=== PATIENT | male | born 1975 | race Caucasian/White ===

== ENCOUNTER 2019-01-04 20:14 | Emergency (ER) | payer OTHER ==
[2019-01-04 20:51] LABS: Absolute Lymphocytes (CBC) 1.5 K/uL (0.7-4.9); Basophils % 0.4 % (0-1.3); Eosinophils % 1.4 % (0-4.4); Hematocrit 46.3 % (39.6-49.0); Lymphocytes % 17.4 % (15.3-44.8); MPV 10.2 fL (7.6-11.3); Monocytes % 7.3 % (3.3-12.3); RBC Red Blood Cell Count 5.15 M/uL (4.33-5.43)
[2019-01-04] MEDS ORDERED: NA CHLORIDE 0.9% 1,000 ML ONE (21:03)
[2019-01-04 21:14] LABS: ALT/SGPT 44 U/L (12-78); AST/SGOT 28 U/L (15-37); Albumin 3.9 g/dL (3.4-5.0); Alkaline Phosphatase 77 U/L (45-117); BUN Blood Urea Nitrogen 15 mg/dL (7-18); Bicarbonate 26 mmol/L (21-32); Bilirubin Direct 0.1 mg/dL (0-0.2); Bilirubin Total 0.6 mg/dL (0.2-1.0); CKMB Creatine Kinase MB < 1.0 ng/mL (0.3-3.6); Creatine Phosphokinase 125 U/L (39-308); Glucose Level 103 mg/dL (74-106); Magnesium 2.3 mg/dL (1.8-2.4); NT PRO-BNP 16 pg/mL (<125); Potassium 3.6 mmol/L (3.5-5.1); Protein, Total 7.8 g/dL (6.4-8.2); Sodium Level 139 mmol/L (136-145); Troponin (Emerg Dept Use Only) 0.02 ng/mL (0.0-0.045)
[2019-01-04] MEDS ORDERED: KETOROLAC 30 MG/ML INJ ONE (21:47)
--- NOTE | 2019-01-04 22:53 | ER ---
Nurse's Notes [facility] Name: Mariana Matamoros Age: 43 yrs Sex: Male : 1975 Arrival Date: 01/04/2019 Time: 20:15 Bed 20 Private MD: Diagnosis: Other chest pain-chest wall Presentation: 01/04 20:18 Presenting complaint: Patient states: Dog jumped on chest 3 days ago and since then, ss chest has become increasingly sore. Pt reported to family member that he experienced briefly some tingling to fingers on left hand. Transition of care: patient was not received from another setting of care. Onset of symptoms was January 04, 2019. Risk Assessment: Do you want to hurt yourself or someone else? Patient reports no desire to harm self or others. Initial Sepsis Screen: Does the patient meet any 2 criteria? No. Patient's initial sepsis screen is negative. Does the patient have a suspected source of infection? No. Patient's initial sepsis screen is negative. Care prior to arrival: None. 20:18 Method Of Arrival: Ambulatory ss 20:18 Acuity: BESSIE 3 ss Historical: - Allergies: 20:21 No Known Allergies; ss - Home Meds: 20:21 None [Active]; ss - PMHx: 20:21 None; ss - PSHx: 20:21 L knee repair; ss - Immunization history:: Adult Immunizations up to date. - Social history:: Smoking status: Patient uses tobacco products, chewing tobacco. - Ebola Screening: : Patient denies exposure to infectious person Patient denies travel to an Ebola-affected area in the 21 days before illness onset. - Family history:: not pertinent. Screenin:00 Abuse screen: Denies threats or abuse. Denies injuries from another. Nutritional lp1 screening: No deficits noted. Tuberculosis screening: No symptoms or risk factors identified. Fall Risk None identified. Assessment: 21:00 General: Appears in no apparent distress. comfortable, Behavior is calm, cooperative, lp1 appropriate for age. Pain: Complains of pain in chest Pain does not radiate. Pain began 2-3 days ago. Aggravated by Pain on respiration. Neuro: No deficits noted. Cardiovascular: Patient's skin is warm and dry. Respiratory: Reports pain with respiration Respiratory effort is even, unlabored, Respiratory pattern is regular, Breath sounds are clear bilaterally. GI: No deficits noted. : No signs and/or symptoms were reported regarding the genitourinary system. EENT: No signs and/or symptoms were reported regarding the EENT system. Derm: Skin is pink, warm \T\ dry. Musculoskeletal: No deficits noted. 22:00 Reassessment: Patient appears in no apparent distress at this time. Patient is alert, lp1 oriented x 3, equal unlabored respirations, skin warm/dry/pink. Patient aware of waiting for CT results. 23:12 Reassessment: Patient appears in no apparent distress at this time. Patient is alert, lp1 oriented x 3, equal unlabored respirations, skin warm/dry/pink. Patient states feeling better. Patient states symptoms have improved. Vital Signs: 20:21 BP 136 / 93; Pulse 98; Resp 17; Temp 98.1(TE); Pulse Ox 97% on R/A; Weight 149.69 kg; Height 6 ft. 0 in. (182.88 cm); Pain 1/10; 21:00 BP 121 / 79; Pulse 95; Resp 18; Pulse Ox 96% on R/A; lp1 22:00 BP 131 / 86; Pulse 87; Resp 18; Pulse Ox 97% on R/A; lp1 23:13 BP 120 / 81; Pulse 87; Resp 18; Pulse Ox 97% ; Pain 0/10; lp1 20:21 Body Mass Index 44.76 (149.69 kg, 182.88 cm) ED Course: 20:15 Patient arrived in ED. 20:18 Hernando Small MD is Attending Physician. [facility] 20:21 Triage completed. 20:21 Arm band placed on right wrist. 20:24 Radiology exam delayed due to lab results not completed at this time. (BUN/Creatinine). vm2 20:40 Initial lab(s) drawn, by me, sent to lab. Inserted saline lock: 20 gauge in right fc antecubital area, using aseptic technique. 20:47 Yoselyn Milner, DAVID is Primary Nurse. lp1 21:00 Patient has correct armband on for positive identification. Placed in gown. Cardiac lp1 monitor on. Pulse ox on. NIBP on. 21:00 Patient maintains SpO2 saturation greater than 95% on room air. lp1 21:46 CT completed. Patient tolerated procedure well. Patient moved to CT. Patient moved back ct from CT. 21:51 CT Chest For PE Angio In Process Unspecified. EDMS 22:50 Parish Herman MD is Referral Physician. [facility] 23:11 No provider procedures requiring assistance completed. IV discontinued, No lp1 redness/swelling at site. Pressure dressing applied. Administered Medications: 21:00 Drug: NS 0.9% 1000 ml Route: IV; Rate: 1 bolus; Site: right antecubital; lp1 22:15 Follow up: IV Status: Completed infusion; IV Intake: 1000ml lp1 22:03 Drug: TORadol 30 mg Route: IVP; Site: right antecubital; lp1 22:39 Follow up: Response: Pain is decreased lp1 Intake: 22:15 IV: 1000ml; Total: 1000ml. lp1 Outcome: 22:50 Discharge ordered by . [facility] 23:12 Discharged to home ambulatory, with significant other. lp1 23:12 Condition: good 23:12 Discharge instructions given to patient, Instructed on discharge instructions, follow up and referral plans. medication usage, Demonstrated understanding of instructions, follow-up care, medications, Prescriptions given X 2. 23:14 Patient left the ED. lp1 Signatures: Dispatcher [employer] EDLA Hernando Small MD MD cha Chretien, Felicia RN Paola Huerta RN RN ss Pena, Laura, RN RN lp1 Cj Dang Victoria [facility]
--- NOTE | 2019-01-04 22:53 | EDPHYS ---
Physician Documentation [facility] Name: Mariana Matamoros Age: 43 yrs Sex: Male : 1975 Arrival Date: 01/04/2019 Time: 20:15 Bed 20 Private MD: ED Physician Hernando Small HPI: 01/04 20:22 This 43 yrs old Male presents to ER via Ambulatory with complaints of Chest viki Wall Pain. 20:22 The patient or guardian reports chest pain that is located primarily in the anterior viki chest wall, left. Onset: 3 day(s) ago. The pain does not radiate. Associated signs and symptoms: The patient has no apparent associated signs or symptoms. The chest pain is described as sharp. Duration: The patient or guardian reports multiple episodes, that wax and wane. Modifying factors: The symptoms are alleviated by remaining still, the symptoms are aggravated by breathing, deep breath, exertion, movement, palpation of area. Severity of pain: At its worst the pain was moderate in the emergency department the pain is unchanged. The patient has not experienced similar symptoms in the past. Historical: - Allergies: 20:21 No Known Allergies; ss - Home Meds: 20:21 None [Active]; ss - PMHx: 20:21 None; ss - PSHx: 20:21 L knee repair; ss - Immunization history:: Adult Immunizations up to date. - Social history:: Smoking status: Patient uses tobacco products, chewing tobacco. - Ebola Screening: : Patient denies exposure to infectious person Patient denies travel to an Ebola-affected area in the 21 days before illness onset. - Family history:: not pertinent. ROS: 20:22 Constitutional: Negative for fever, chills, and weight loss, Eyes: Negative for injury, viki pain, redness, and discharge, ENT: Negative for injury, pain, and discharge, Neck: Negative for injury, pain, and swelling, Respiratory: Negative for shortness of breath, cough, wheezing, and pleuritic chest pain, Abdomen/GI: Negative for abdominal pain, nausea, vomiting, diarrhea, and constipation, Back: Negative for injury and pain, : Negative for injury, bleeding, discharge, and swelling, MS/Extremity: Negative for injury and deformity, Skin: Negative for injury, rash, and discoloration, Neuro: Negative for headache, weakness, numbness, tingling, and seizure, Psych: Negative for depression, anxiety, suicide ideation, homicidal ideation, and hallucinations, Allergy/Immunology: Negative for hives, rash, and allergies, Endocrine: Negative for neck swelling, polydipsia, polyuria, polyphagia, and marked weight changes, Hematologic/Lymphatic: Negative for swollen nodes, abnormal bleeding, and unusual bruising. 20:22 Cardiovascular: Positive for chest pain, of the chest. Exam: 20:22 Constitutional: This is a well developed, well nourished patient who is awake, alert, viki and in no acute distress. Head/Face: Normocephalic, atraumatic. Eyes: Pupils equal round and reactive to light, extra-ocular motions intact. Lids and lashes normal. Conjunctiva and sclera are non-icteric and not injected. Cornea within normal limits. Periorbital areas with no swelling, redness, or edema. ENT: Nares patent. No nasal discharge, no septal abnormalities noted. Tympanic membranes are normal and external auditory canals are clear. Oropharynx with no redness, swelling, or masses, exudates, or evidence of obstruction, uvula midline. Mucous membranes moist. Neck: Trachea midline, no thyromegaly or masses palpated, and no cervical lymphadenopathy. Supple, full range of motion without nuchal rigidity, or vertebral point tenderness. No Meningismus. Chest/axilla: Normal chest wall appearance and motion. Nontender with no deformity. No lesions are appreciated. Cardiovascular: Regular rate and rhythm with a normal S1 and S2. No gallops, murmurs, or rubs. Normal PMI, no JVD. No pulse deficits. Respiratory: Lungs have equal breath sounds bilaterally, clear to auscultation and percussion. No rales, rhonchi or wheezes noted. No increased work of breathing, no retractions or nasal flaring. Abdomen/GI: Soft, non-tender, with normal bowel sounds. No distension or tympany. No guarding or rebound. No evidence of tenderness throughout. Back: No spinal tenderness. No costovertebral tenderness. Full range of motion. Male : Normal genitalia with no discharge or lesions. Skin: Warm, dry with normal turgor. Normal color with no rashes, no lesions, and no evidence of cellulitis. MS/ Extremity: Pulses equal, no cyanosis. Neurovascular intact. Full, normal range of motion. Neuro: Awake and alert, GCS 15, oriented to person, place, time, and situation. Cranial nerves II-XII grossly intact. Motor strength 5/5 in all extremities. Sensory grossly intact. Cerebellar exam normal. Normal gait. Psych: Awake, alert, with orientation to person, place and time. Behavior, mood, and affect are within normal limits. 20:22 Musculoskeletal/extremity: Extremities: all appear grossly normal, with no appreciated pain with palpation, ROM: no acute changes, intact in all extremities, full active range of motion, full passive range of motion, Circulation is intact in all extremities. Sensation intact. Compartment Syndrome exam of affected extremity: is normal. no pain, no numbness, no tingling, no sensation deficit, no palor, no weak pulses, DVT Exam: No signs of deep vein thrombosis. no pain, no swelling, no tenderness, negative Homans' sign noted on exam, no appreciated bluish discoloration, no erythema, no increased warmth. Vital Signs: 20:21 BP 136 / 93; Pulse 98; Resp 17; Temp 98.1(TE); Pulse Ox 97% on R/A; Weight 149.69 kg; ss Height 6 ft. 0 in. (182.88 cm); Pain 1/10; 21:00 BP 121 / 79; Pulse 95; Resp 18; Pulse Ox 96% on R/A; lp1 22:00 BP 131 / 86; Pulse 87; Resp 18; Pulse Ox 97% on R/A; lp1 23:13 BP 120 / 81; Pulse 87; Resp 18; Pulse Ox 97% ; Pain 0/10; lp1 20:21 Body Mass Index 44.76 (149.69 kg, 182.88 cm) MDM: 20:18 Patient medically screened. [facility] 20:49 Data reviewed: vital signs, nurses notes, lab test result(s), EKG, radiologic studies, [facility] CT scan, plain films. 01/04 20:22 Order name: Basic Metabolic Panel [facility] 01/04 20:22 Order name: CBC with Diff [facility] 01/04 20:22 Order name: LFT's; Complete Time: 21:17 [facility] 01/04 20:22 Order name: Magnesium; Complete Time: 21:17 [facility] 01/04 20:22 Order name: NT PRO-BNP; Complete Time: 21:17 [facility] 01/04 20:22 Order name: Troponin (emerg Dept Use Only); Complete Time: 21:17 [facility] 01/04 20:22 Order name: Ckmb; Complete Time: 21:17 [facility] 01/04 20:22 Order name: CK; Complete Time: 21:17 [facility] 01/04 20:22 Order name: CT Chest For PE Angio [facility] 01/04 20:25 Order name: Basic Metabolic Panel; Complete Time: 21:17 [facility] 01/04 20:25 Order name: CBC with Automated Diff; Complete Time: 21:17 [facility] 01/04 20:46 Order name: Lipase; Complete Time: 21:17 [facility] 01/04 21:15 Order name: Troponin (emerg Dept Use Only): 10pm; Complete Time: 22:52 [facility] 01/04 20:22 Order name: EKG; Complete Time: 20:25 [facility] 01/04 20:22 Order name: Cardiac monitoring; Complete Time: 21:16 [facility] 01/04 20:22 Order name: EKG - Nurse/Tech; Complete Time: 20:28 [facility] 01/04 20:22 Order name: IV Saline Lock; Complete Time: 21:16 [facility] 01/04 20:22 Order name: Labs collected and sent; Complete Time: 21:16 [facility] 01/04 20:22 Order name: O2 Per Protocol; Complete Time: 21:16 [facility] 01/04 20:22 Order name: O2 Sat Monitoring; Complete Time: 21:16 [facility] Administered Medications: 21:00 Drug: NS 0.9% 1000 ml Route: IV; Rate: 1 bolus; Site: right antecubital; lp1 22:15 Follow up: IV Status: Completed infusion; IV Intake: 1000ml lp1 22:03 Drug: TORadol 30 mg Route: IVP; Site: right antecubital; lp1 22:39 Follow up: Response: Pain is decreased lp1 Disposition: 01/04/19 22:50 Discharged to Home. Impression: Other chest pain - chest wall. - Condition is Stable. - Discharge Instructions: Nonspecific Chest Pain, Chest Wall Pain, Nonspecific Chest Pain, [id number]. - Prescriptions for Ibuprofen 600 mg Oral Tablet - take 1 tablet by ORAL route every 8 hours As needed take with food; 21 tablet. Tylenol- Codeine #3 300-30 mg Oral Tablet - take 2 tablet by ORAL route every 6 hours As needed; 30 tablet. - Medication Reconciliation Form, Thank You Letter, Antibiotic Education, Prescription Opioid Use form. - Follow up: Private Physician; When: 2 - 3 days; Reason: Recheck today's complaints, Continuance of care, Re-evaluation by your physician. Follow up: Parish Herman; When: 2 - 3 days; Reason: Recheck today's complaints, Continuance of care, Re-evaluation by your physician. - Problem is new. - Symptoms have improved. Signatures: Dispatcher [employer] EDHernando Ford MD MD cha Smirch, Shelby, RN RN ss Yoselyn Milner RN RN lp1 Corrections: (The following items were deleted from the chart) 23:14 22:50 01/04/2019 22:50 Discharged to Home. Impression: Other chest pain - chest wall. lp1 Condition is Stable. Discharge Instructions: Chest Wall Pain, Nonspecific Chest Pain, Nonspecific Chest Pain, [id number]. Prescriptions for Ibuprofen 600 mg Oral Tablet - take 1 tablet by ORAL route every 8 hours As needed take with food; 21 tablet, Tylenol-Codeine #3 300-30 mg Oral Tablet - take 2 tablet by ORAL route every 6 hours As needed; 30 tablet. and Forms are Medication Reconciliation Form, Thank You Letter, Antibiotic Education, Prescription Opioid Use. Follow up: Private Physician; When: 2 - 3 days; Reason: Recheck today's complaints, Continuance of care, Re-evaluation by your physician. Follow up: Parish Herman; When: 2 - 3 days; Reason: Recheck today's complaints, Continuance of care, Re-evaluation by your physician. Problem is new. Symptoms have improved. viki
--- NOTE | 2019-01-05 07:33 | EKG ---
Test Date: 2019-01-04 Test Time: 20:28:30 Non Clinical Advisor: ALBERTO MEASUREMENT RESULTS: Intervals: Rate: 98 NE: 142 QRSD: 90 QT: 332 QTc: 423 [place]: P: 41 NE: 142 QRS: -4 T: 93 INTERPRETIVE STATEMENTS: Normal sinus rhythm Moderate voltage criteria for LVH, may be normal variant Abnormal QRS-T angle, consider primary T wave abnormality Abnormal ECG No previous ECG available for comparison Electronically Signed On 01-05-19 07:32:16 CDT by Parish Herman
--- NOTE | 2019-01-05 10:47 | RAD REPORT ---
EXAM DESCRIPTION: CT - Chest For Pe Angio - 01/04/2019 9:51 pm CLINICAL HISTORY: 43 years old and is Male; Chest pain;Dyspnea TECHNIQUE: Axial computed tomographic angiography images of the chest with intravenous contrast [facility] pulmonary embolism protocol. Sagittal and coronal reformatted images were created and reviewed. Sagittal and coronal reformatted images were created and reviewed. This CT exam was performed [facility] one or more of the following dose reduction techniques: automated exposure control, adjustment of the mA and/or kV according to patient size, and/or use of iterative reconstruction technique. MIP reconstructed images were created and reviewed. COMPARISON: No relevant prior studies available. FINDINGS: Limitations: None. Pulmonary arteries: Unremarkable. No pulmonary embolism. Aorta: No significant abnormality noted. No thoracic aortic aneurysm. Lungs: Mild scattered basilar atelectasis present. No mass. Pleural space: Unremarkable. No significant effusion. No pneumothorax. Heart: Unremarkable. No cardiomegaly. No significant pericardial effusion. No evidence of RV dysfunction. Bones/joints: No acute fracture. No dislocation. Soft tissues: Unremarkable. Lymph nodes: Unremarkable. No enlarged lymph nodes. Liver: Fatty liver. IMPRESSION: No significant acute findings. Electronically signed by: Rosi Carrasquillo MD 01/04/2019 10:05 PM CDT Due to temporary technical issues with the PACS/Fluency reporting system, reports are being signed by the in house radiologist as a courtesy to ensure prompt reporting. The interpreting radiologist is f ully responsible for the content of the report.
== END 2019-01-04 23:14 | disposition home or self-care (01) ==
LOC: ER 20:14
DX: R07.89 Other chest pain (principal); Z72.0 Tobacco use
CPT/HCPCS: 36415; 71275; 80048; 80076; 82550; 82553; 83690; 83735; 83880; 84484; 85025; 93005; 96361; 96374; 99285; J7030; Q9967

== ENCOUNTER 2019-09-19 21:33 | Emergency (ER) | payer OTHER ==
--- OUTSIDE RECORDS SUMMARY | 2019-09-19 21:34 | XMS REPORT ---
:1975 Author Organization [employer] Care Team Providers Name Role Phone Aaron Laurent Provider Role Unavailable Allergies, Adverse Reactions, Alerts Substance Reaction Event Type N.K.D.A. Info Not Available Non Drug Allergy Problems Problem Type Condition Code Onset Dates Condition Status Assessment Follow up Z09 Active Medications No Known Medications Results No Known Results Summary Purpose [employer] Submission
--- OUTSIDE RECORDS SUMMARY | 2019-09-19 21:34 | XMS REPORT ---
:1975 Author Organization [employer] Care Team Providers Name Role Phone Aaron Laurent Provider Role Unavailable Allergies, Adverse Reactions, Alerts Substance Reaction Event Type N.K.D.A. Info Not Available Non Drug Allergy Problems Problem Type Condition Code Onset Dates Condition Status Assessment Thrombosed hemorrhoids K64.5 Active Medications Medication Code System Code Instructions Start End Date Status Dosage Date Rectal Rocket NDC 0 rectally q12 October 18, October 25, Active 1 suppository hours as needed 2018 2018 Results No Known Results Summary Purpose [employer] Submission
[2019-09-19] MEDS ORDERED: MORPHINE 4 MG/ML SYR ONE (21:48)
[2019-09-19] MEDS ORDERED: KETOROLAC 30 MG/ML INJ ONE (21:48)
[2019-09-19] MEDS ORDERED: ONDANSETRON 4 MG/2 ML VIAL ONE ×2 (21:48→23:49)
[2019-09-19] MEDS ORDERED: NA CHLORIDE 0.9% 1,000 ML ONE ×2 (21:48→22:24)
[2019-09-19 21:59] LABS: Absolute Lymphocytes (CBC) 1.8 K/uL (0.7-4.9); Basophils % 0.4 % (0-1.3); Hematocrit 44.7 % (39.6-49.0); Lymphocytes % 27.5 % (15.3-44.8); MPV 10.2 fL (7.6-11.3); RBC Red Blood Cell Count 5.05 M/uL (4.33-5.43)
[2019-09-19 22:17] LABS: ALT/SGPT 42 U/L (12-78); AST/SGOT 21 U/L (15-37); Albumin 3.8 g/dL (3.4-5.0); Alkaline Phosphatase 85 U/L (45-117); BUN Blood Urea Nitrogen 12 mg/dL (7-18); Bicarbonate 27 mmol/L (21-32); Bilirubin Total 0.5 mg/dL (0.2-1.0); Glucose Level 107 mg/dL (74-106); Lipase 98 U/L (73-393); Potassium 3.4 mmol/L (3.5-5.1); Protein, Total 7.6 g/dL (6.4-8.2); Sodium Level 140 mmol/L (136-145)
[2019-09-19] MEDS ORDERED: TAMSULOSIN 0.4 MG SR CAP ONE (22:24)
[2019-09-19] MEDS ORDERED: CEFTRIAXONE/SWI 1gm 1 GM/10 ML SYR ONE (22:25)
[2019-09-19] MEDS ORDERED: MAGNESIUM SULFATE 1 gm IVPB 1 GM/100 ML BAG IV ONE (22:25)
[2019-09-19] MEDS ORDERED: HYDROMORPHONE HCL 1 MG/ML INJ ONE (23:48)
--- NOTE | 2019-09-20 00:10 | EDPHYS ---
Physician Documentation [facility] Name: Mariana Matamoros Age: 44 yrs Sex: Male : 1975 Arrival Date: 09/19/2019 Time: 21:35 Bed 8 Private MD: ROGER Physician Hernando Small HPI: 09/18 21:38 This 44 yrs old Male presents to ER via Ambulatory with complaints of right cp flank pain, rlq pain and right testicle pain. 21:38 The patient presents with abdominal pain right lower quadrant, abdominal distention in cp the upper abdomen, in the lower abdomen. Onset: The symptoms/episode began/occurred this morning. The patient complains of pain in the right mid back and right low back. The pain radiates to the right mid back and right low back. Onset: The symptoms/episode began/occurred this morning. Modifying factors: The symptoms are alleviated by nothing. the symptoms are aggravated by nothing. The patient presents with flank pain, described as crampy, steady, of the right mid back and right low back, scrotal pain, of the right side. Modifying factors: The symptoms are alleviated by nothing, the symptoms are aggravated by nothing. Associated signs and symptoms: Pertinent positives: nausea. Historical: - Allergies: 21:37 No Known Allergies; jd3 - Home Meds: 21:37 None [Active]; jd3 - PMHx: 21:37 None; jd3 - PSHx: 21:37 L knee repair; jd3 - Immunization history:: Adult Immunizations up to date. - Social history:: Smoking status: Patient reports use of chewing tobacco. - Family history:: not pertinent. ROS: 21:38 Constitutional: Negative for fever, chills, and weight loss. cp 21:40 Constitutional: Negative for body aches, chills. cp 21:40 Cardiovascular: Negative for chest pain. 21:40 Respiratory: Negative for cough. 21:40 Abdomen/GI: Positive for abdominal pain, of the anterior aspect of right lateral abdomen, posterior aspect of right lateral abdomen and right lower quadrant. 21:40 : Positive for testicular pain of the right testicle. Exam: 21:40 Constitutional: This is a well developed, well nourished patient who is awake, alert, cp and in no acute distress. Head/Face: Normocephalic, atraumatic. Eyes: Pupils equal round and reactive to light, extra-ocular motions intact. Lids and lashes normal. Conjunctiva and sclera are non-icteric and not injected. Cornea within normal limits. Periorbital areas with no swelling, redness, or edema. ENT: Nares patent. No nasal discharge, no septal abnormalities noted. Tympanic membranes are normal and external auditory canals are clear. Oropharynx with no redness, swelling, or masses, exudates, or evidence of obstruction, uvula midline. Mucous membranes moist. Neck: Trachea midline, no thyromegaly or masses palpated, and no cervical lymphadenopathy. Supple, full range of motion without nuchal rigidity, or vertebral point tenderness. No Meningismus. Chest/axilla: Normal chest wall appearance and motion. Nontender with no deformity. No lesions are appreciated. Cardiovascular: Regular rate and rhythm with a normal S1 and S2. No gallops, murmurs, or rubs. Normal PMI, no JVD. No pulse deficits. Respiratory: Lungs have equal breath sounds bilaterally, clear to auscultation and percussion. No rales, rhonchi or wheezes noted. No increased work of breathing, no retractions or nasal flaring. 21:40 Abdomen/GI: Inspection: distension, Bowel sounds: normal, Palpation: mild abdominal tenderness, moderate abdominal tenderness, in the right lower quadrant. 21:40 Back: pain, that is mild, ROM is normal, normal spinal alignment noted, CVA tenderness, that is mild, is noted on the right, muscle spasm, is not present. 21:40 Skin: Appearance: Color: normal in color, Temperature: normal temperature, Moisture: normal moisture, petechiae, not noted, ecchymosis, not noted, flushing, not noted, diaphoresis is not appreciated, no rash present. Vital Signs: 21:37 BP 131 / 87; Pulse 92; Resp 17 S; Temp 97.7(O); Pulse Ox 95% on R/A; Weight 147.42 kg jd3 (R); Height 6 ft. 0 in. (182.88 cm) (R); Pain 6/10; 22:43 BP 118 / 70; Pulse 78; Resp 17 S; Pulse Ox 95% on R/A; Pain 4/10; jd3 23:33 BP 113 / 71; Pulse 81; Resp 17 S; Pulse Ox 96% on R/A; Pain 4/10; jd3 21:37 Body Mass Index 44.08 (147.42 kg, 182.88 cm) jd3 MDM: 21:43 Data reviewed: vital signs, nurses notes, lab test result(s), radiologic studies, CT cp scan. 21:43 Patient medically screened. 09/19 00:05 ED course: [email or web address] website reports patient has narcotic score of 030 and overall cp overdose score of 110. 09/18 21:37 Order name: CBC with Diff; Complete Time: 22:22 cp 09/18 21:37 Order name: Lipase; Complete Time: 22:22 cp 09/18 21:37 Order name: Comprehensive Metabolic Panel; Complete Time: 22:22 cp 09/18 21:37 Order name: Urine Culture 09/18 21:48 Order name: Urine Microscopic Only 09/18 22:48 Order name: Urine Dipstick--Ancillary (enter results) mw2 09/18 21:37 Order name: CT Stone Protocol 09/18 22:47 Order name: CT Aorta for Dissection cp Administered Medications: 09/18 21:53 Drug: NS 0.9% 1000 ml Route: IV; Rate: 1 bolus; Site: right antecubital; jd3 22:35 Follow up: Response: No adverse reaction; IV Status: Completed infusion; IV Intake: jd3 1000ml 21:53 Drug: Zofran (Ondansetron) 4 mg Route: IVP; Site: right antecubital; jd3 22:50 Follow up: Response: No adverse reaction jd3 21:54 Drug: TORadol 30 mg Route: IVP; Site: right antecubital; jd3 22:50 Follow up: Response: No adverse reaction jd3 21:54 Drug: morphine 4 mg Route: IVP; Site: right antecubital; jd3 22:50 Follow up: Response: No adverse reaction; RASS: Alert and Calm (0) jd3 22:32 Drug: NS 0.9% 1000 ml Route: IV; Rate: 1 bolus; Site: right antecubital; jd3 23:30 Follow up: Response: No adverse reaction; IV Status: Completed infusion; IV Intake: jd3 1000ml 22:32 Drug: Flomax 0.4 mg Route: PO; jd3 23:30 Follow up: Response: No adverse reaction jd3 22:33 Drug: Rocephin 1 grams Route: IV; Rate: calculated rate; Site: right antecubital; jd3 23:30 Follow up: Response: No adverse reaction; IV Status: Completed infusion; IV Intake: 27ysce3 22:33 Drug: Magnesium Sulfate 1 grams Route: IVPB; Infused Over: 20 mins; Site: right [facility] antecubital; 23:30 Follow up: Response: No adverse reaction; IV Status: Completed infusion; IV Intake: jd3 100ml 23:48 Drug: Zofran (Ondansetron) 4 mg Route: IVP; Site: right antecubital; jd3 09/19 00:26 Follow up: Response: No adverse reaction jd3 09/18 23:49 Drug: Dilaudid 1 mg Route: IVP; Site: right antecubital; jd3 09/19 00:26 Follow up: Response: No adverse reaction; RASS: Alert and Calm (0) jd3 00:23 Not Given (Duplicate Order): NS 0.9% 1000 ml IV at 1 bolus Per protocol; 1000 mL bolus jd3 Disposition: 06:18 Co-signature as Attending Physician, Hernando Small MD I agree with the assessment and viki plan of care. Disposition: 09/20/19 00:09 Discharged to Home. Impression: Lower abdominal pain, unspecified, Low back pain. - Condition is Stable. - Discharge Instructions: Abdominal Pain, Adult, Back Pain, Adult, Back Exercises. - Prescriptions for Tylenol- Codeine #3 300-30 mg Oral Tablet - take 2 tablets by ORAL route every 6 hours As needed; 20 tablet. Cyclobenzaprine 10 mg Oral Tablet - take 1 tablet by ORAL route every 8 hours As needed; 20 tablet. Diclofenac Sodium 75 mg Oral Tablet, Delayed Release (E.C.) - take 1 tablet by ORAL route 2 times per day; 20 tablet. - Medication Reconciliation Form, Thank You Letter, Antibiotic Education, Prescription Opioid Use form. - Follow up: Private Physician; When: 2 - 3 days; Reason: Recheck today's complaints. - Problem is new. - Symptoms have improved. Signatures: Dispatcher [employer] Hernando Han MD MD cha Nieto, Roman, MD MD rn Page, Corey, PA PA cp Davies, Jonathon, RN RN jd3 Corrections: (The following items were deleted from the chart) 00:28 00:09 09/20/2019 00:09 Discharged to Home. Impression: Lower abdominal pain, jd3 unspecified; Low back pain. Condition is Stable. Forms are Medication Reconciliation Form, Thank You Letter, Antibiotic Education, Prescription Opioid Use. Follow up: Private Physician; When: 2 - 3 days; Reason: Recheck today's complaints. Problem is new. Symptoms have improved. cp
--- NOTE | 2019-09-20 00:10 | ER ---
Nurse's Notes [facility] Name: Mariana Matamoros Age: 44 yrs Sex: Male : 1975 Arrival Date: 09/19/2019 Time: 21:35 Bed 8 Private MD: Diagnosis: Lower abdominal pain, unspecified;Low back pain Presentation: 09/18 21:35 Chief complaint: Patient states: "I stated to have testicular pain yesterday. today I jd3 am having pain on the right side of my back that has come around to the front.". Coronavirus screen: The patient has NOT traveled to [place] in the past 14 days. The patient has NOT had contact with known and/or suspected case of Coronavirus. Proceed with normal triage procedures. Ebola Screen: Patient negative for fever greater than or equal to 101.5 degrees Fahrenheit, and additional compatible Ebola Virus Disease symptoms. Initial Sepsis Screen: Does the patient meet any 2 criteria? No. Patient's initial sepsis screen is negative. Does the patient have a suspected source of infection? No. Patient's initial sepsis screen is negative. Risk Assessment: Do you want to hurt yourself or someone else? Patient reports no desire to harm self or others. 21:35 Method Of Arrival: Ambulatory jd3 21:35 Acuity: BESSIE 3 jd3 21:40 Onset of symptoms was September 18, 2019. jd3 Historical: - Allergies: 21:37 No Known Allergies; jd3 - Home Meds: 21:37 None [Active]; jd3 - PMHx: 21:37 None; jd3 - PSHx: 21:37 L knee repair; jd3 - Immunization history:: Adult Immunizations up to date. - Social history:: Smoking status: Patient reports use of chewing tobacco. - Family history:: not pertinent. Screenin:40 Abuse screen: Denies threats or abuse. Nutritional screening: No deficits noted. jd3 Tuberculosis screening: No symptoms or risk factors identified. Fall Risk Ambulatory Aid- None/Bed Rest/Nurse Assist (0 pts). Gait- Normal/Bed Rest/Wheelchair (0 pts) Mental Status- Oriented to own ability (0 pts). Total Valentino Fall Scale indicates No Risk (0-24 pts). Assessment: 21:38 General: Appears in no apparent distress. uncomfortable, Behavior is calm, cooperative, jd3 appropriate for age. Pain: Complains of pain in right flank Pain radiates to abdomen Quality of pain is described as radiating, sharp. Neuro: Level of Consciousness is awake, alert, obeys commands, Oriented to person, place, time, situation. Cardiovascular: Denies chest pain, Capillary refill < 3 seconds Patient's skin is warm and dry. Respiratory: Airway is patent Respiratory effort is even, unlabored, Respiratory pattern is regular, symmetrical, Denies cough, shortness of breath. GI: Reports lower abdominal pain, Patient currently denies constipation, diarrhea, nausea, vomiting. : Reports pain in right flank(s), testicle, Denies burning with urination, inability to void, urinary frequency. EENT: No signs and/or symptoms were reported regarding the EENT system. Derm: Skin is intact, Skin is dry, Skin is normal, Skin temperature is warm. Musculoskeletal: Circulation, motion, and sensation intact. Range of motion: intact in all extremities. 22:35 Reassessment: Patient appears in no apparent distress at this time. No changes from jd3 previously documented assessment. Patient and/or family updated on plan of care and expected duration. Pain level reassessed. Patient is alert, oriented x 3, equal unlabored respirations, skin warm/dry/pink. 23:33 Reassessment: Patient appears in no apparent distress at this time. Patient and/or jd3 family updated on plan of care and expected duration. Pain level reassessed. Patient is alert, oriented x 3, equal unlabored respirations, skin warm/dry/pink. Patient states feeling better. 09/19 00:26 Reassessment: Patient appears in no apparent distress at this time. Patient and/or jd3 family updated on plan of care and expected duration. Pain level reassessed. Patient is alert, oriented x 3, equal unlabored respirations, skin warm/dry/pink. pt reported understanding of discharge instructions. even and steady gait upon discharge. Patient states feeling better. Vital Signs: 09/18 21:37 BP 131 / 87; Pulse 92; Resp 17 S; Temp 97.7(O); Pulse Ox 95% on R/A; Weight 147.42 kg jd3 (R); Height 6 ft. 0 in. (182.88 cm) (R); Pain 6/10; 22:43 BP 118 / 70; Pulse 78; Resp 17 S; Pulse Ox 95% on R/A; Pain 4/10; jd3 23:33 BP 113 / 71; Pulse 81; Resp 17 S; Pulse Ox 96% on R/A; Pain 4/10; jd3 21:37 Body Mass Index 44.08 (147.42 kg, 182.88 cm) jd3 ED Course: 21:35 Patient arrived in ED. cp 21:35 Max Sawyer RN is Primary Nurse. jd3 21:35 Hernando Parish PA is PHCP. cp 21:35 Hernando Small MD is Attending Physician. cp 21:36 Triage completed. jd3 21:37 Arm band placed on. jd3 21:40 Patient has correct armband on for positive identification. Bed in low position. Call j light in reach. Side rails up X 1. Adult w/ patient. 21:50 Initial lab(s) drawn, by me, sent to lab. Inserted saline lock: 20 gauge in right lt1 antecubital area, using aseptic technique. 22:15 CT Stone Protocol In Process Unspecified. EDMS 23:32 CT Aorta for Dissection In Process Unspecified. EDMS 03/04 00:27 No provider procedures requiring assistance completed. IV discontinued, intact, jd3 bleeding controlled, No redness/swelling at site. Pressure dressing applied. Administered Medications: 0303 21:53 Drug: NS 0.9% 1000 ml Route: IV; Rate: 1 bolus; Site: right antecubital; jd3 22:35 Follow up: Response: No adverse reaction; IV Status: Completed infusion; IV Intake: jd3 1000ml 21:53 Drug: Zofran (Ondansetron) 4 mg Route: IVP; Site: right antecubital; jd3 22:50 Follow up: Response: No adverse reaction jd3 21:54 Drug: TORadol 30 mg Route: IVP; Site: right antecubital; jd3 22:50 Follow up: Response: No adverse reaction jd3 21:54 Drug: morphine 4 mg Route: IVP; Site: right antecubital; jd3 22:50 Follow up: Response: No adverse reaction; RASS: Alert and Calm (0) jd3 22:32 Drug: NS 0.9% 1000 ml Route: IV; Rate: 1 bolus; Site: right antecubital; jd3 23:30 Follow up: Response: No adverse reaction; IV Status: Completed infusion; IV Intake: jd3 1000ml 22:32 Drug: Flomax 0.4 mg Route: PO; jd3 23:30 Follow up: Response: No adverse reaction jd3 22:33 Drug: Rocephin 1 grams Route: IV; Rate: calculated rate; Site: right antecubital; jd3 23:30 Follow up: Response: No adverse reaction; IV Status: Completed infusion; IV Intake: [id number] 22:33 Drug: Magnesium Sulfate 1 grams Route: IVPB; Infused Over: 20 mins; Site: right [facility] antecubital; 23:30 Follow up: Response: No adverse reaction; IV Status: Completed infusion; IV Intake: jd3 100ml 23:48 Drug: Zofran (Ondansetron) 4 mg Route: IVP; Site: right antecubital; jd3 09/19 00:26 Follow up: Response: No adverse reaction jd3 09/18 23:49 Drug: Dilaudid 1 mg Route: IVP; Site: right antecubital; jd3 09/19 00:26 Follow up: Response: No adverse reaction; RASS: Alert and Calm (0) jd3 00:23 Not Given (Duplicate Order): NS 0.9% 1000 ml IV at 1 bolus Per protocol; 1000 mL bolus jd3 Intake: 09/18 22:35 IV: 1000ml; Total: 1000ml. jd3 23:30 IV: 1000ml; Total: 2000ml. jd3 23:30 IV: 10ml; Total: 2010ml. jd3 23:30 IV: 100ml; Total: 2110ml. jd3 Outcome: 09/19 00:09 Discharge ordered by . cp 00:27 Discharged to home ambulatory, with family. jd3 00:27 Condition: stable 00:27 Discharge instructions given to patient, family, Instructed on discharge instructions, follow up and referral plans. medication usage, Demonstrated understanding of instructions, follow-up care, medications, Prescriptions given X 3. 00:28 Patient left the ED. jd3 Signatures: Dispatcher [employer] EDMS Hernando Parish PA PA cp Davies, Jonathon, RN RN Jeri Segovia lt1 Corrections: (The following items were deleted from the chart) 03/03 22:56 22:43 Pulse 78bpm; Resp 17bpm; Spontaneous; Pulse Ox 95% RA; Pain /10; jd3 jd3 09/19 00:25 00:25 Response: No adverse reaction; IV Status: Completed infusion; IV Intake: 10ml jd3 jd3
[2019-09-20 00:53] LABS: Urine Bacteria <20 /HPF (NONE SEEN); Urine Culture Reflex Order NOT NEEDED; Urine RBC NONE SEEN /HPF (NONE SEEN)
[2019-09-20 00:55] LABS: Urine Blood NEGATIVE (NEG); Urine Glucose NEGATIVE (NEG); Urine Protein NEGATIVE (NEG); Urine pH 5.5 (5.0-7.0)
[2019-09-20 02:29] VITALS: TEMP 97.7
[2019-09-20 02:32] VITALS: BP 113/71; O2SAT 96
--- NOTE | 2019-09-20 10:49 | RAD REPORT ---
EXAM DESCRIPTION: CT Angiography Chest, Abdomen and Pelvis With Intravenous Contrast CLINICAL HISTORY: The patient is 44 years old and is Male; right flank pain TECHNIQUE: Axial computed tomographic angiography images of the chest, abdomen and pelvis with intra venous contrast. This CT exam was performed using one or more of the following dose reduction techn iques: automated exposure control, adjustment of the mA and/or kV according to patient size, and/or use of iterative reconstruction technique. MIP reconstructed images were created and reviewed. DLP: 2874 mGy*cm COMPARISON: CT abdomen and pelvis with IV contrast of the same day. FINDINGS: VASCULATURE: AORTA: No acute findings. No aortic aneurysm. No dissection. PULMONARY ARTERIES: Unremarkable as visualized. No pulmonary embolism is identified. GREAT VESSELS OF AORTIC ARCH: No acute findings. No dissection. No arterial occlusion or signi ficant stenosis. CELIAC TRUNK AND MESENTERIC ARTERIES: No acute findings. No occlusion or significant stenosis. RENAL ARTERIES: No acute findings. No occlusion or significant stenosis. ILIAC ARTERIES: No acute findings. No occlusion or significant stenosis. CHEST: LUNGS: Unremarkable. No mass. No consolidation. PLEURAL SPACE: Unremarkable. No significant effusion. No pneumothorax. HEART: Unremarkable. No cardiomegaly. No significant pericardial effusion. THYROID: Visualized thyroid is within normal limits. ABDOMEN: LIVER: Unchanged diffuse hepatic steatosis. GALLBLADDER AND BILE DUCTS: Unremarkable. No calcified stones. No ductal dilation. PANCREAS: Unremarkable. No ductal dilation. No mass. SPLEEN: Unremarkable. No splenomegaly. ADRENALS: Unremarkable. No mass. KIDNEYS AND URETERS: Unremarkable. No hydronephrosis. No solid mass. STOMACH AND BOWEL: Unremarkable. No obstruction. No mucosal thickening. PELVIS: APPENDIX: No findings to suggest acute appendicitis. BLADDER: Bladder is decompressed. REPRODUCTIVE: Unremarkable as visualized. CHEST, ABDOMEN and PELVIS: INTRAPERITONEAL SPACE: Unremarkable. No significant fluid collection. No free air. BONES/JOINTS: Lumbar levoscoliosis. L5-S1 changes. No acute fracture. No dislocation. SOFT TISSUES: Small fat-containing umbilical hernia. LYMPH NODES: Unremarkable. No enlarged lymph nodes. IMPRESSION: 1. No acute aortic abnormality or pulmonary embolism. 2. Unchanged diffuse hepatic steatosis. 3. Unchanged L5-S1 degenerative changes with bilateral foraminal narrowing. Electronically signed by: Lamine Trammell DO 09/19/2019 11:48 PM TIRE TRIMMER HAND Due to temporary technical issues with the PACS/Fluency reporting system, reports are being signed by the in house radiologist as a courtesy to ensure prompt reporting. The interpreting radiologist is f ully responsible for the content of the report.
--- NOTE | 2019-09-20 10:51 | RAD REPORT ---
EXAM DESCRIPTION: CT Abdomen and Pelvis Without Intravenous Contrast CLINICAL HISTORY: The patient is 44 years old and is Male; Abd pain; Flank pain TECHNIQUE: Axial computed tomography images of the abdomen and pelvis without intravenous contrast. Sagittal and coronal reformatted images were created and reviewed. This CT exam was performed usi ng one or more of the following dose reduction techniques: automated exposure control, adjustment o f the mA and/or kV according to patient size, and/or use of iterative reconstruction technique. DLP: 3074 mGy*cm COMPARISON: CTA chest dated 01/04/2019. FINDINGS: LUNG BASES: Lung bases are clear. HEART: Visualized heart is normal. ABDOMEN: LIVER: Diffuse hepatic steatosis. GALLBLADDER AND BILE DUCTS: Unremarkable. No calcified stones. No ductal dilation. PANCREAS: Unremarkable. No ductal dilation. SPLEEN: Punctate calcified granuloma. No splenomegaly. ADRENALS: Unremarkable. No mass. KIDNEYS AND URETERS: Unremarkable. No obstructing stones. No hydronephrosis. STOMACH AND BOWEL: Unremarkable. No obstruction. No mucosal thickening. PELVIS: APPENDIX: No findings to suggest acute appendicitis. BLADDER: Unremarkable. No stones. REPRODUCTIVE: Unremarkable as visualized. ABDOMEN and PELVIS: INTRAPERITONEAL SPACE: Unremarkable. No free air. No significant fluid collection. BONES/JOINTS: L5-S1 degenerative changes. Lumbar levoscoliosis. No acute fracture. No dislocation. SOFT TISSUES: Small fat-containing umbilical hernia. VASCULATURE: Unremarkable. No abdominal aortic aneurysm. LYMPH NODES: Unremarkable. No enlarged lymph nodes. IMPRESSION: 1. No acute abdominal or pelvic abnormality. No obstructive uropathy. 2. Diffuse hepatic steatosis. 3. L5-S1 degenerative changes. Lumbar levoscoliosis. Electronically signed by: Lamine Trammell DO 09/19/2019 10:32 PM TESTER WAFER [employer]ATE Due to temporary technical issues with the PACS/Fluency reporting system, reports are being signed by the in house radiologist as a courtesy to ensure prompt reporting. The interpreting radiologist is f meghannly responsible for the content of the report.
== END 2019-09-20 00:28 | disposition home or self-care (01) ==
LOC: ER 21:33
DX: M54.5 Low back pain (principal); F17.220 Nicotine dependence, chewing tobacco, uncomplicated
CPT/HCPCS: 96365; 96361; 96368; 87088; 85025; 36415; 83690; 80053; 76377; 71275; 74175; 74176; 96375; 99284; Q9967; J3475; J1170; J0696; J7030 ×2; J2405 ×2; 81003; 81015; 87086

== ENCOUNTER 2020-10-02 09:39 | Emergency (ER) | payer OTHER ==
--- OUTSIDE RECORDS SUMMARY | 2020-10-02 09:42 | XMS REPORT | Continuity of Care Document ---
:1975 Author Organization [facility] t Address [address] [place] [address] Care Team Providers Name Role Phone Nitin Flores MD Attending Clinician 2, Lab Attending Clinician Unavailable Pob, Lab Main Attending Clinician Unavailable Provider, Urgent Care Attending Clinician Unavailable Problems Condition Condition Condition Status Onset Resolution Last Treating Co mments Source Name Details Category Date Date Treatment Clinician Date Follow up Follow up Diagnosis Active C [facility] Allergies, Adverse Reactions, Alerts This patient has no known allergies or adverse reactions. Medications Ordered Filled Start Stop Current Ordering Indication Dosage Frequency Signature Comments Components Source Medication Medication Date Date Medication? Clinician (SIG) Name Name Rectal Rectal 2018- 2019- No Aaron 1 [facility] [id number] Kovacev suppositor L ukes - 00:00: 00:00 y Memoria 00 :00 [facility] ent Clinics Procedures This patient has no known procedures. Encounters Start End Encounter Admission Attending Care Care Encounter Source Date/Time Date/Time Type Type Clinicians Facility Department ID 2020-10-02 2020-10-02 Telephone TOAN Flores [id number] 00:00:00 00:00:00 [facility] [id number] Jose Luis [id number] Jordyn [phone] [address] 2020-09-24 2020-09-24 Refill TOAN Flores [id number] 00:00:00 00:00:00 Emirful A [place] [id number] [place] [id number] Professio [phone] [address] 2020-02-16 2020-02-16 Refill Mark, [facility] [id number] 00:00:00 00:00:00 Wondiful A [place] [id number] [place] [id number] Professio [phone] [address] 2020-01-26 2020-01-26 Medical Superintendent 2, Ad[facility] Lab [facility] [id number] 08:56:42 09:11:42 Visit [place] [id number] [place] [id number] Professio [id number] [address] 2020-01-17 2020-01-17 Refill Mark, [facility] [id number] 00:00:00 00:00:00 Wondiful A [place] [id number] [place] [id number] Professio [phone] [address] 2019-12-12 2019-12-12 Medical Superintendent Pob, [facility] [id number] 10:25:52 10:40:52 Visit Lab Main [place] [id number] [place] [id number] Professio [phone] [address] 2019-12-12 2019-12-12 Urgent Provider[place] [id number] 09:32:57 10:10:30 Care [facility] [id number] Care [place] [id number] Professio [phone] [place] [address] [address] 2018-11-01 2018-11-01 [facility] [id number] 09:15:00 09:15:00 t Specialty/U Ayse kes - Specialty rology [facility] l Clinic Outpati ent Clinics 2018-10-18 2018-10-18 [facility] [id number] 15:30:00 15:30:00 t Specialty/U Ayse kes - Special[facility] ro[facility] Clinic Outpati ent Clinics Results This patient has no known results.
--- NOTE | 2020-10-02 11:18 | RAD REPORT ---
EXAM DESCRIPTION: Claudia López And Lat (2 Views)10/02/2020 11:05 am CLINICAL HISTORY: Cough COMPARISON: None FINDINGS: An area of subsegmental atelectasis is present within the lingula. Otherwise, lungs appear clear of acute infiltrate. Heart is normal size
[2020-10-02 12:32] LABS: BUN Blood Urea Nitrogen 19 mg/dL (7-18); Bicarbonate 23 mmol/L (21-32); Glucose Level 92 mg/dL (74-106); Potassium 3.6 mmol/L (3.5-5.1); Sodium Level 139 mmol/L (136-145)
--- NOTE | 2020-10-02 13:26 | ER ---
Nurse's Notes [facility] Name: Mariana Matamoros Age: 45 yrs Sex: Male : 1975 Arrival Date: 10/02/2020 Time: 09:42 Bed 8 Private MD: Diagnosis: Other chest pain;Coronavirus infection, unspecified Presentation: 10/02 09:45 Chief complaint: Patient states: COVID + 09/25/20, since then has had upper chest sv congestion, fever, unable to take a deep breath without coughing. Coronavirus screen: Client denies travel out of the [place] in the last 14 days. Client presents with at least one sign or symptom that may indicate coronavirus-19. Standard/surgical mask placed on the client. Provider contacted for isolation considerations. Client reports previous positive COVID test result. Ebola Screen: No symptoms or risks identified at this time. Risk Assessment: Do you want to hurt yourself or someone else? Patient reports no desire to harm self or others. Onset of symptoms was September 25, 2020. 09:45 Method Of Arrival: Ambulatory sv 09:45 Acuity: BESSIE 3 sv 09:46 Initial Sepsis Screen: Does the patient meet any 2 criteria? RR > 20 per min. No. sv Patient's initial sepsis screen is negative. Does the patient have a suspected source of infection? No. Patient's initial sepsis screen is negative. Historical: - Allergies: 09:46 No Known Allergies; sv - PMHx: 09:46 Hypertension; sv - PSHx: 09:46 L knee repair; sv - Immunization history:: Adult Immunizations up to date. - Social history:: Smoking status: Patient reports use of chewing tobacco. Screenin:45 Abuse screen: Denies threats or abuse. Denies injuries from another. Nutritional hb screening: No deficits noted. Tuberculosis screening: No symptoms or risk factors identified. Fall Risk None identified. Assessment: 10:15 Reassessment: Received VO from Dr Rodriguez to order a CXR. sv 11:45 General: Appears in no apparent distress. Behavior is calm, cooperative. Pain: Pain hb currently is 4 out of 10 on a pain scale. Neuro: Level of Consciousness is awake, alert, obeys commands, Oriented to person, place, time, situation. Cardiovascular: Capillary refill < 3 seconds Patient's skin is warm and dry. Respiratory: Respiratory effort is even, unlabored, Respiratory pattern is regular, symmetrical. GI: No signs and/or symptoms were reported involving the gastrointestinal system. : No signs and/or symptoms were reported regarding the genitourinary system. EENT: No signs and/or symptoms were reported regarding the EENT system. Derm: Skin is pink, warm \T\ dry. Musculoskeletal: No signs and/or symptoms reported regarding the musculoskeletal system. 12:41 Reassessment: Patient appears in no apparent distress at this time. Patient and/or hb family updated on plan of care and expected duration. Pain level reassessed. Patient is alert, oriented x 3, equal unlabored respirations, skin warm/dry/pink. Vital Signs: 09:46 BP 123 / 80; Pulse 87; Resp 24; Temp 98.1(O); Pulse Ox 97% ; Weight 154.22 kg; Height 6 sv ft. 0 in. (182.88 cm); 12:35 Pulse 80; Resp 16; Pulse Ox 97% on R/A; ss 12:42 BP 131 / 77; Pulse 75; Resp 16; Pulse Ox 99% on R/A; hb 13:43 BP 110 / 75; Pulse 92; Resp 16; Pulse Ox 96% on R/A; ss 09:46 Body Mass Index 46.11 (154.22 kg, 182.88 cm) sv ED Course: 09:42 Patient arrived in ED. mr 09:45 Arm band placed on. sv 09:46 Triage completed. sv 11:03 Chest Pa And Lat (2 Views) XRAY In Process Unspecified. EDMS 11:13 Paola Garcia RN is Primary Nurse. ss 11:18 Edvin Whalen PA is PHCP. jmm 11:18 Tyrel Rodriguez MD is Attending Physician. jmm 11:41 Inserted saline lock: 20 gauge in right antecubital area, using aseptic technique. hb Blood collected. 11:45 Patient has correct armband on for positive identification. Bed in low position. Call hb light in reach. 13:45 No provider procedures requiring assistance completed. IV discontinued, intact, ss bleeding controlled, No redness/swelling at site. Pressure dressing applied. Administered Medications: 13:35 Drug: Decadron - Dexamethasone 10 mg Route: IVP; Site: right forearm; ss 13:46 Follow up: Response: No adverse reaction; Medication administered at discharge. Outcome: 13:25 Discharge ordered by MD. armendariz 13:45 Discharged to home ambulatory. 13:45 Condition: good 13:45 Discharge instructions given to patient, Instructed on discharge instructions, follow up and referral plans. Demonstrated understanding of instructions, follow-up care. 13:46 Patient left the ED. Signatures: Dispatcher [employer] Jennifer Bull RN RN Edvin Whalen PA PA jmm Rivera, Mary mr Smirch, Shelby, RN RN Stephanie Starr RN RN hb Corrections: (The following items were deleted from the chart) 11:46 11:45 Pain: Pain currently is 5 out of 10 on a pain scale. hb hb
--- NOTE | 2020-10-02 13:26 | EDPHYS ---
Physician Documentation [facility] Name: Mariana Matamoros Age: 45 yrs Sex: Male : 1975 Arrival Date: 10/02/2020 Time: 09:42 Bed 8 Private MD: ED Physician Tyrel Rodriguez HPI: 10/02 11:50 This 45 yrs old Male presents to ER via Ambulatory with complaints of COVID+, jmm Chest Pain, Cough. 11:50 The patient or guardian reports chest pain that is located primarily in the anterior [facility] chest wall. Onset: 1 week(s) ago. The pain does not radiate. Associated signs and symptoms: Pertinent positives: cough, shortness of breath. The chest pain is described as sharp. Modifying factors: The symptoms are alleviated by nothing. the symptoms are aggravated by cough, deep breath. This is a 45 year old male with a history of htn that presents to the ED with complaints of sternal chest pain beginning shortly after developing covid 19 symptoms this past Wednesday. Pain has increased, patient is concerned he may have developed pneumonia. Pain does not radiate and exacerbated by deep breath and cough. . Historical: - Allergies: 09:46 No Known Allergies; sv - PMHx: 09:46 Hypertension; sv - PSHx: 09:46 L knee repair; sv - Immunization history:: Adult Immunizations up to date. - Social history:: Smoking status: Patient reports use of chewing tobacco. ROS: 11:52 Constitutional: Negative for fever, chills, and weight loss. jmm 11:52 Cardiovascular: Positive for chest pain, with cough, with movement. 11:52 Respiratory: Positive for cough, hemoptysis. 11:52 All other systems are negative. Exam: 11:52 Constitutional: This is a well developed, well nourished patient who is awake, alert, jmm and in no acute distress. Head/Face: atraumatic. Eyes: EOMI, no conjunctival erythema appreciated ENT: Moist Mucus Membranes Neck: Trachea midline, Supple 11:52 Abdomen/GI: Non distended, soft Back: Normal ROM Skin: General appearance color normal MS/ Extremity: Moves all extremities, no obvious deformities appreciated, no edema noted to the lower extremities Neuro: Awake and alert, normal gait Psych: Behavior is normal, Mood is normal, Patient is cooperative and pleasant 11:52 Chest/axilla: Inspection: normal, Palpation: tenderness, that is mild, of the mid-sternal area, that partially reproduces the patient's complaints, Axilla: 11:52 Cardiovascular: Rate: normal, Rhythm: regular, Pulses: no pulse deficits are appreciated. 11:52 ECG was reviewed by the Attending Physician. Vital Signs: 09:46 BP 123 / 80; Pulse 87; Resp 24; Temp 98.1(O); Pulse Ox 97% ; Weight 154.22 kg; Height 6 sv ft. 0 in. (182.88 cm); 12:35 Pulse 80; Resp 16; Pulse Ox 97% on R/A; ss 12:42 BP 131 / 77; Pulse 75; Resp 16; Pulse Ox 99% on R/A; hb 13:43 BP 110 / 75; Pulse 92; Resp 16; Pulse Ox 96% on R/A; ss 09:46 Body Mass Index 46.11 (154.22 kg, 182.88 cm) sv MDM: 11:23 Patient medically screened. [facility] 13:24 The patient was not given aspirin in the Emergency Department. Data reviewed: vital [facility] signs, nurses notes. Counseling: I had a detailed discussion with the patient and/or guardian regarding: the historical points, exam findings, and any diagnostic results supporting the discharge/admit diagnosis, lab results, radiology results, the need for outpatient follow up, to return to the emergency department if symptoms worsen or persist or if there are any questions or concerns that arise at home. ED course: Patient is alert and non toxic in appearance in the ED. Most likely chest wall pain. Patient advised to follow up with pcp and otherwise given strict return precautions. Patient understood and agrees with the plan of care. . 10/02 11:28 Order name: BMP; Complete Time: 13:24 [facility] 10/02 11:28 Order name: D-Dimer; Complete Time: 13:15 [facility] 10/02 10:15 Order name: Chest Pa And Lat (2 Views) XRAY; Complete Time: 11:22 sv 10/02 11:28 Order name: EKG - Nurse/Tech; Complete Time: 11:44 [facility] 10/02 11:28 Order name: Saline Lock; Complete Time: :44 [facility] EC: Rate is 87 beats/min. Rhythm is regular. QRS [place] is Normal. [place] interval is normal. QRS jmm interval is normal. QT interval is normal. T waves are Flattened in leads III, aVL. No ST changes noted. Reviewed by me. Administered Medications: 13:35 Drug: Decadron - Dexamethasone 10 mg Route: IVP; Site: right forearm; ss 13:46 Follow up: Response: No adverse reaction; Medication administered at discharge. Disposition: 17:54 Co-signature as Attending Physician, Tyrel Rodriguez MD available for consultation at ps1 all times. Signature for administrative purposes. Did not see or evaluate the patient unless otherwise noted. . Disposition: 10/02/20 13:25 Discharged to Home. Impression: Other chest pain, Coronavirus infection, unspecified. - Condition is Stable. - Discharge Instructions: Nonspecific Chest Pain, COVID-19. - Medication Reconciliation Form, Thank You Letter, Antibiotic Education, Prescription Opioid Use form. - Follow up: Private Physician; When: 2 - 3 days; Reason: Recheck today's complaints, Continuance of care, Re-evaluation by your physician. Signatures: Dispatcher [employer] Jennifer Bull, RN RN Edvin Mcgovern PA PA jmm Smirch, Shelby, RN RN ss Singer, Phillip, MD MD ps1 Corrections: (The following items were deleted from the chart) 13:46 13:25 10/02/2020 13:25 Discharged to Home. Impression: Other chest pain; Coronavirus ss infection, unspecified. Condition is Stable. Forms are Medication Reconciliation Form, Thank You Letter, Antibiotic Education, Prescription Opioid Use. Follow up: Private Physician; When: 2 - 3 days; Reason: Recheck today's complaints, Continuance of care, Re-evaluation by your physician. marcello
[2020-10-02] MEDS ORDERED: dexAMETHasone 10 MG/ML VIAL ONE (13:44)
[2020-10-02 13:53] VITALS: TEMP 98.1
[2020-10-02 13:56] VITALS: BP 110/75; O2SAT 96
== END 2020-10-02 13:46 | disposition home or self-care (01) ==
LOC: ER 09:39
DX: U07.1 COVID-19 (principal); I10 Essential (primary) hypertension; F17.220 Nicotine dependence, chewing tobacco, uncomplicated; R07.89 Other chest pain
CPT/HCPCS: 93005; 80048; 36415; 85379; 71046; 96374; 99284; J1100